=== PATIENT | male | born 1970 | race Caucasian/White ===

== ENCOUNTER → 2016-11-18 06:25 | Day surgery (SDC) | payer OTHER ==
--- NOTE | 2016-11-17 03:35 | HP ---
HISTORY AND PHYSICAL: DATE OF ADMISSION/SURGERY: 11/18/16 DATE OF OFFICE VISIT: 11/14/16 ATTENDING SURGEON: Orquidea Tompkins MD PROCEDURE: Left knee arthroscopy. CHIEF COMPLAINT: Left knee pain. HISTORY OF PRESENT ILLNESS: Mr. Granados is a very pleasant 46-year-old gentleman who is scheduled to undergo a left knee arthroscopy on 11/18/[address] Orquidea Tompkins. In brief, the patient sustained a work injury on 09/29/16 with an MRI dated 10/23/16 showing a partial tear to the ACL as well as tear to the posterior horn of the medial meniscus. PAST MEDICAL HISTORY: Obesity. PAST SURGICAL HISTORY: Right knee scope. MEDICATIONS: None currently. ALLERGIES: No known drug allergies. FAMILY MEDICAL HISTORY: Mother with breast cancer, diabetes. SOCIAL HISTORY: Positive tobacco use for approximately 4 to 5 cigarettes a day. Positive for alcohol use with binge drinking on the weekend. REVIEW OF SYSTEMS: General: Negative for fevers, chills, night sweats. No known problems with anesthesia. HEENT: Negative for headaches, lightheadedness , or syncopal episodes. Integument: Negative for abrasions, lesions, open sores or difficulty with healing. Cardiothoracic: Negative for chest pain, palpitations or edema. Negative for high blood pressure. Pulmonary: Negative for shortness of breath with exertion, chronic cough, or COPD. GI: Negative for nausea, vomiting, constipation or diarrhea. Positive for GERD. : Negative for nocturia, urinary frequency, urgency, history of UTIs, or kidney problems. Musculoskeletal: Positive for right shoulder pain. Positive for bilateral knee pain. Positive for chronic lower back pain. Neuro: Negative for paresthesias, numbness. No history of seizure, stroke or epilepsy. Endocrine: Negative for diabetes. Negative for thyroid issues. Hematologic: Negative for easy bruising, anemia, excessive bleeding. No history of DVTs or PEs. Infectious Disease: Negative MRSA, hepatitis C or HIV. PHYSICAL EXAMINATION GENERAL: Well appearing, in no acute distress, alert and oriented. VITAL SIGNS: Height 71 inches, weight 252 pounds, pulse 81, blood pressure 128 /85, respirations 16, temperature 97.9, BMI 35.1. HEENT: Normocephalic, atraumatic, EOMI. NECK: Supple. CARDIOTHORACIC: Regular rate and rhythm. No murmurs, gallops or rubs. No edema in bilateral lower extremities. PULMONARY: Lungs clear to auscultation bilaterally. No crackles, rhonchi or wheezes. ABDOMEN: Soft, nontender and nondistended. Positive obese. Normoactive bowel sounds. Negative CVA tenderness bilaterally. NEUROLOGIC: Alert and oriented x3. Cranial nerves grossly intact. Sensation intact to light touch, bilateral lower extremities. MUSCULOSKELETAL: Left knee with mild joint effusion. Positive tenderness over the medial joint line. Range of motion 0 to 110. Negative Grady sign bilaterally. Posterior tibial pulses 2+ bilaterally. ASSESSMENT: Left medial meniscus tear. PLAN: The patient is very pleasant 46-year-old gentleman, who presented today for history and physical evaluation prior to undergoing a left knee scope by Dr. Orquidea Tompkins on 11/18/16. The patient was sent for blood work today which he will have done prior to his procedure. The risks and benefits of the procedure were explained to the patient by Dr. Orquidea Tompkins. He had no further questions or concerns. He will follow up with us postoperatively in approximately 10 to 14 weeks. No medications were sent with the patient at this time. MANE CORTEZ [id number]/[facility] #: [id number] MTDD
[~2016-11-18 06:25] MED LIST: Buffered Lidocaine 1% SYRIN* 3 ML/SYR SYRINGE INTRADERM ONE; Bupivacaine 0.5% SDV PF* 30 ML VIAL ONE; EPINEPHrine AMP 1 MG/ML ONE; Ketorolac INJ* 30 MG/ML 1 ML VIAL ONE; Lidocaine 2% PF* 5 ML VIAL ONE; Midazolam* 1 MG/ML 2 ML VIAL (2 MG) ONE; Ondansetron INJ* 2 MG/ML VIAL IV PRN; Propofol* 10 MG/ML 20 ML BTL IV PUSH ONE; Sodium Citrate/Citric Acid* 15 ML UDC ONE; Sodium Citrate/Citric Acid* 15 ML UDC PO ONE; ceFAZolin 2 GM PREMIX(*) 2 GM/50 ML BAG IVPB ONE; fentaNYL* 50 MCG/ML 2 ML VIAL (100 MCG VIAL) ONE; methylPREDNISolone ACETATE 80* 80 MG/ML 1 ML VIAL ONE
[2016-11-18] MEDS: fentaNYL* 50 MCG/ML 2 ML VIAL (100 MCG VIAL) IV PRN ×2 (09:27→09:46)
[2016-11-18 10:02] VITALS: BP 119/80
--- NOTE | 2016-11-19 13:21 | OP ---
DATE OF OPERATION: 11/18/16 [facility] DATE OF : 74 SURGEON: Orquidea Tompkins MD HATCH TENDER: MANE Doyle ANESTHESIOLOGIST: Everette Dickerson DO ANESTHESIA: LMA. PRE-OP DIAGNOSIS: Left knee medial meniscal tear with mild arthritis. POST-OP DIAGNOSIS: Left knee medial meniscal tear with moderate arthritis. OPERATIVE PROCEDURE: Left total knee arthroplasty with partial medial meniscectomy. INDICATIONS: Mr. Granados is a gentleman who was working with [employer] department training when he twisted his left knee and had a fall. He went on to have conservative treatment, which did not alleviate his pain. His symptoms and chronic swelling consistent with meniscal tear prompted an MRI, which confirmed a meniscal tear. He did have some mild arthritic changes on plain films. The patient failed conservative treatment and elected to have left knee arthroscopy with partial meniscectomy due to continued pain and swelling. Informed consent was obtained from the patient. He understood the risks of the procedure included but were not limited to bleeding, infection, damage to nearby structures, continued pain, need for further surgery, stroke, heart attack, blood clot, and . He wished to proceed. SPECIMEN: None. ESTIMATED BLOOD LOSS: Less than 25 cc. COMPLICATIONS: None. INTRAOPERATIVE FINDINGS: Intraoperatively, the patient was noted to have grade 3 and 4 Outerbridge cartilage changes in the patellofemoral compartment involving the medial and lateral patellar facet as well as trochlear groove of the femur. Medial compartment had some grade 2 and 3 Outerbridge cartilage changes. There was a radial type tear in the white-red and red-red zone of the medial meniscus at the midportion. DESCRIPTION OF PROCEDURE: Mr. Granados was identified in the preanesthesia unit. His left lower extremity was marked as the correct operative side. Informed consent was signed and placed in the chart. The patient was taken to the operating room and placed under general anesthesia with LMA. Left lower extremity was prepped and draped in the usual sterile fashion. Preop time-out was made to correctly identify the patient's side and site. Appropriate perioperative antibiotics were given within 1 hour of incision. A 0.5-cm anterolateral portal incision was made with a 15 blade and carried down to the capsule. Trocar was introduced. As soon as the light and water sources were turned on, there was immediate visualization of the suprapatellar pouch. A tour of the knee joint was performed. Suprapatellar pouch had no obvious abnormalities. The patellofemoral compartment showed grade 3 and 4 Outerbridge cartilage changes with slightly frayed cartilage. There was some exposed subchondral bone along the femoral trochlear groove. Cartilage loss and fraying along the medial and lateral patellar facets. Medial gutters showed no obvious plica or loose body. Medial compartment of the knee showed an obvious radial tear in the mid portion of the medial meniscus. ACL appeared to be intact. The knee was placed in the figure- of-4 position. There was no obvious lateral meniscus tear. The cartilage was largely intact. Under direct visualization, the medial portal incision was made with a 15 blade. Probe was introduced and the second tour of the knee joint was performed. It was noted that the radial tear involved the white-white, white- red, and red-red zone. Left biter, straight biter, as well as shaver were used to perform partial medial meniscectomy. A smooth border of the medial meniscus was obtained. A probe was used to ensure there were no further tears or displaced meniscal fragments. ACL and PCL were intact. The knee was copiously irrigated with sterile saline. All instruments were carefully removed. The incisions were closed with 3-0 nylon suture. Intraarticular injection of 80 mg of Depo-Medrol and 6 cc of 0.25% Marcaine was placed in the knee joint. The patient's incisions were covered with Xeroform, 4x4s, and Webril. Stephen wrap and cold packs were placed over this. The patient's anesthesia was reversed without difficulty. He was taken to the PACU in stable condition. Intended weightbearing will be weightbearing as tolerated. Intended DVT prophylaxis will be aspirin. [id number]/[facility] #: [id number] FLAKITO
== END | disposition home or self-care (01) ==
LOC: OR 06:25
PROVIDERS: ATTEND Orthopaedic Surgery Adult Reconstructive Orthopaedic Surgery
DX: S83.242A Other tear of medial meniscus, current injury, left knee, initial encounter (principal); M17.12 Unilateral primary osteoarthritis, left knee; F17.210 Nicotine dependence, cigarettes, uncomplicated; X50.0XXA Overexertion from strenuous movement or load, initial encounter; Y92.89 Other specified places as the place of occurrence of the external cause; Y99.0 Civilian activity done for income or pay
CPT/HCPCS: A9270-GY; J0171; J0690; J1040; J1885; J2250; J2704; J3010